=== PATIENT | female | born 1980 | race American Indian/Alaskan Native ===

== ENCOUNTER 2016-08-07 20:10 | Outpatient (CLI) | payer MEDICAID ==
[2016-08-07] MEDS ORDERED: LACTATED RINGERS 500 ML IV ONE (20:19)
[2016-08-07] MEDS ORDERED: LACTATED RINGERS 1,000 ML ONE (20:55)
[2016-08-07 21:00] LABS: Bacteria,Urine 1+ /HPF (Negative); Bilirubin,Urine NEG (Negative); Blood,Urine NEG (Negative); Ketones,Urine TR mg/dL (Negative); Leukocyte Esterase,Urine NEG (Negative); Mucus,Urine 3+ /HPF; Nitrite,Urine NEG (Negative)
[2016-08-07 21:10] LABS: Protein,Urine >500 mg/dL (Negative)
[2016-08-07] MEDS ORDERED: LACTATED RINGERS 1,000 ML IV ONE (21:10)
[2016-08-07 22:32] VITALS: BP 121/66
[2016-08-07 23:13] LABS: HIV-1 Antigen p24 Non React (Non React); HIVR-1/2 Ab Non React (Non React)
== END 2016-08-07 22:50 | disposition home or self-care (01) ==
LOC: TRG 20:10
PROVIDERS: ATTEND Obstetrics & Gynecology
DX: O42.913 Preterm premature rupture of membranes, unspecified as to length of time between rupture and onset of labor, third trimester (principal); Z3A.31 31 weeks gestation of pregnancy
CPT/HCPCS: 36415; 80074; 81001; 87806; J7120; 59025

== ENCOUNTER 2016-08-21 22:25 | Outpatient (CLI) | payer MEDICAID ==
[2016-08-21 23:11] VITALS: BP 118/66
[2016-08-21] MEDS ORDERED: LACTATED RINGERS 500 ML IV ONE (23:57)
[2016-08-22] MEDS ORDERED: LACTATED RINGERS 1,000 ML ONE (00:39)
[2016-08-22 00:57] LABS: Bilirubin,Urine NEG (Negative); Blood,Urine NEG (Negative); Ketones,Urine 20 mg/dL (Negative); Leukocyte Esterase,Urine NEG (Negative); Mucus,Urine 1+ /HPF; Nitrite,Urine NEG (Negative)
== END 2016-08-22 02:45 | disposition home or self-care (01) ==
LOC: TRG 22:25
PROVIDERS: ATTEND Obstetrics & Gynecology
DX: O26.893 Other specified pregnancy related conditions, third trimester (principal); Z3A.32 32 weeks gestation of pregnancy
CPT/HCPCS: 81001; 96360; J7120

== ENCOUNTER 2016-09-15 12:51 | Outpatient (CLI) | payer MEDICAID ==
[2016-09-15 13:14] VITALS: BP 122/73
[2016-09-15 14:13] LABS: Bilirubin,Urine NEG (Negative); Blood,Urine NEG (Negative); Ketones,Urine NEG (Negative); Leukocyte Esterase,Urine NEG (Negative); Mucus,Urine FEW /HPF; Nitrite,Urine NEG (Negative); Protein,Urine <15 mg/dL mg/dL (Negative); Urobilinogen,Urine < 2.0 mg/dL (<2.0)
--- NOTE | 2016-09-15 14:55 | Ultrasound Report ---
BIOPHYSICAL PROFILE: INDICATION: KATELYN. COMPARISON: None similar. TECHNIQUE: Transabdominal ultrasound with Doppler interrogation. 2 - breathing movements 2 - movements 2 - posture and tone 2 - Qualitative amniotic fluid volume 8 - TOTAL SCORE OF POSSIBLE 8 Heart Rate (bpm) 157
--- NOTE | 2016-09-15 14:57 | Ultrasound Report ---
OB LIMITED INDICATION: well being, KATELYN. COMPARISON: 02/21/2016 TECHNIQUE: Transabdominal grayscale ultrasound with Doppler interrogation. Gestation: [place] Position: Cephalic Amniotic Fluid: At upper limits of normal (Normal 7-24 cm) KATELYN = 24.3 cm Heart Rate: 157 BPM
== END 2016-09-15 14:29 | disposition home or self-care (01) ==
LOC: TRG 12:51
PROVIDERS: ATTEND Obstetrics & Gynecology
DX: O47.1 False labor at or after 37 completed weeks of gestation (principal); Z3A.37 37 weeks gestation of pregnancy
CPT/HCPCS: 59025; 76815; 76819; 81001

== ENCOUNTER 2016-09-24 00:58 | Outpatient (CLI) | payer MEDICAID ==
[2016-09-24 13:28] VITALS: BP 124/67
== END 2016-09-24 02:35 | disposition home or self-care (01) ==
LOC: TRG 00:58
PROVIDERS: ATTEND Obstetrics & Gynecology
DX: O62.0 Primary inadequate contractions (principal); Z3A.38 38 weeks gestation of pregnancy

== ENCOUNTER 2016-09-24 13:28 | Inpatient (IN) | payer MEDICAID ==
[2016-09-24] MEDS ORDERED: PEPCID IV ONE (13:41)
[2016-09-24] MEDS ORDERED: BICITRA PO ONE (13:41)
[2016-09-24] MEDS ORDERED: REGLAN IV ONE (13:41)
--- NOTE | 2016-09-24 13:57 | History and Physical Report ---
History of Present Illness Date of examination: 09/24/16 Date of admission: 09/24/16 13:28 Chief complaint: SROM History of present illness: Pt is a 35yo BF EDC 10/04/16; EGA 38 4/7 weeks presents to [facility] complaining of SROM clear fluid @ followed by irregular contractions. She receives care at [facility] since 12 weeks. She has 2 previous C Sections , and scheduled for a Repeat C Section 09/27/16. course has been unremarkable except for h/o Gestational DM. records are available and GBS is Positive. Past History Past Medical History: diabetes (GDM) Past Surgical History: section (x2), other (neck cyst resection) [employer] History: herpes Family/Genetic History: diabetes, heart disease, cancer Social history: no significant social history, - Obstetrical History Expected Date of Delivery: 10/04/16 Actual Gestation: 38 Week(s) 4 Day(s) : 4 Medications and Allergies Allergies Allergy/AdvReac Type Severity Reaction Status Date / Time No Known Allergies Allergy Unverified 12/01/14 03:09 Home Medications Medication Instructions Recorded Confirmed Last Taken Type HYDROcodone/APAP 5-325 [[place] 1 - 2 each PO Q6HR PRN #12 tablet 12/02/14 Unknown Rx 5/325] Amoxicillin [Trimox CAP] 500 mg PO Q8H #30 capsule 02/21/16 Unknown Rx Vit-Fe Fumar-FA [ 1 tab PO QDAY #30 tablet 02/21/16 Unknown Rx Vitamin] Ondansetron [Zofran Odt] 4 mg PO Q8HR PRN #10 tab.rapdis 02/22/16 Unknown Rx Active Meds: Active Medications Citric Acid/Sodium Citrate (Bicitra) 30 ml PO ONCE ONE Stop: 09/24/16 13:42 Famotidine (Pepcid) 20 mg IV ONCE ONE Stop: 09/24/16 13:42 Cefazolin Sodium (Ancef/Sterile Water 2 Gm/20 Ml) 2 gm in 20 mls @ 80 mls/hr IV PREOP NR PRN Reason: Protocol Lactated Ringer's (Lactated Ringers) 1,000 mls @ 2,250 mls/hr IV PREOP PATI Stop: 09/25/16 14:27 Oxytocin/Sodium Chloride (Pitocin/Ns 20 Unit/1000ml Drip) 20 units in 1,000 mls @ 0 mls/hr IV TITR PATI PRN Reason: As Directed Metoclopramide HCl (Reglan) 10 mg IV ONCE ONE Stop: 09/24/16 13:42 Review of Systems All systems: negative - Physical Exam Breasts: Positive: deferred Cardiovascular: Regular rate Lungs: Positive: Clear to auscultation Abdomen: Positive: normal appearance Genitourinary (Female): Positive: normal external genitalia Uterus: Positive: enlarged Extremities: Positive: normal - Obstetrical FHR: category 1 Uterine Contraction Monitor Mode: External Results All other labs normal. Assessment and Plan - Patient Problems (1) 38 weeks gestation of Onset Date: 09/24/16 Current Visit: Yes Status: Acute Plan to address problem: A: IUP @ 38 4/7 weeks in labor Previous C Section x 2 GBS Positive P: Admit to L&D for repeat C Section (2) Previous section complicating Onset Date: 09/24/16 Current Visit: Yes Status: Acute
[2016-09-24] MEDS ORDERED: PITOCin/NS 20 UNIT/1000ML DRIP 20 UNITS/1,000 ML BAG IV SCH ×2 (14:00→17:00)
[2016-09-24] MEDS ORDERED: ANCEF/STERILE WATER 2 GM/20 ML 2 GM/20 ML SYRINGE IV NR (14:00)
[2016-09-24] MEDS: LACTATED RINGERS 1,000 ML IV SCH ×2 (14:00→14:46)
[2016-09-24 14:18] LABS: Basophils % (Auto) 0.6 % (0.0-1.8); Eosinophils % (Auto) 0.4 % (0.0-4.3); Hematocrit 31.8 % (30.3-42.9); Hemoglobin 10.3 gm/dl (10.1-14.3); Mean Corpuscular HGB Conc 32 % (30-34); Mean Corpuscular Hemoglobin 26 pg (28-32); Mean Corpuscular Volume 81 fl (79-97); Platelet Count 248 K/mm3 (140-440); Red Blood Count 3.93 M/mm3 (3.65-5.03); Red Cell Distribution Width 17.8 % (13.2-15.2); White Blood Count 8.8 K/mm3 (4.5-11.0)
[2016-09-24] MEDS ORDERED: MORPHINE ONE (15:13)
[2016-09-24] MEDS ORDERED: NEO SYNEPHRINE ONE ×2 (15:15)
[2016-09-24] MEDS ORDERED: NACL 0.9% ONE ×2 (15:15)
[2016-09-24] MEDS ORDERED: WATER FOR IRRIG STERILE IR ONE (15:47)
[2016-09-24] MEDS ORDERED: NACL 0.9% IR ONE (15:48)
[2016-09-24] MEDS ORDERED: TORADOL ONE (15:49)
--- NOTE | 2016-09-24 16:35 | Operative Report ---
Operative Report Operative Report: Date of procedure: 09/24/2016 Pre-operative diagnosis: 1. Intrauterine at 38-4/7 weeks in labor 2. Previous section 2 3. Positive group B strep Post-operative diagnosis: Same with meconium fluid Procedure name(s):1. Repeat low transverse section 2. Lysis of pelvic adhesions Surgeon: Nathanael Osorio MD Seismograph Supervisor: None Anesthesia: Spinal anesthesia by Dr. Mateusz Odell EBL: 800 MLS Findings: A 3715 g male Apgars 8 at 1 minute 9 at 5 minutes. Nuchal cord 1. 1+ meconium fluid. Dense lower uterine segment adhesions. Normal uterus. Normal tubes and ovaries bilaterally. Procedure: After the patient was prepped and draped in usual sterile fashion, and after satisfactory level of epidural anesthesia was obtained, the skin knife was used to make a transverse skin incision through the previous skin scars. The incision was excised down to layer of the fascia, which was nicked in the midline and extended laterally using the Bovie cautery. The rectus muscles were dissected off the rectus fascia both superiorly and inferiorly. The rectus bellies in the midline, and the peritoneum was entered under direct visualization. There were large amounts of lower uterine segment adhesions each was taken down using sharp and blunt dissection. The peritoneal incision was extended superiorly and inferiorly. A bladder flap was created and the bladder blade was then placed. The uterus was scored in a curvilinear linear fashion, entered in the midline revealing meconium amniotic fluid. The infant's head was delivered onto the surgical field with the aid of a vacuum, ( 1 pull, no pop-offs), and the oropharynx and nasopharynx were bulb suctioned. The rest of the 's body was delivered, cord was doubly clamped and cut and the infant was handed to the waiting respiratory team. The placenta was manually removed from the uterus, and the uterus removed from its normal anatomical position. After gentle uterine lavage, the incision was inspected and found to be without extensions. It was then closed in 2 layers using 0 Vicryl suture in a running interlocking fashion, the second layer imbricating the first. After good hemostasis was achieved, copious amounts or irrigation was performed, and the gutters were suctioned free of blood and blood clots. The Tisseel sealant was sprayed across the uterine incision. The uterus was then returned to its normal anatomical position, and after excellent hemostasis assured, the peritoneum was reapproximated using 3-0 Vicryl suture in a running interlocking fashion, and then the rectus muscles were reapproximated using 3-0 Vicryl suture in a [id number] configuration. The fascia was then reapproximated using 0 Vicryl suture in running interlocking fashion. The subcutaneous layer was made hemostatic using Bovie cautery, the Tisseel sealant was sprayed across the fascial incision and the skin edges reapproximated using 4-0 Vicryl suture in a subcuticular fashion. Patient tolerated the procedure well was transported to recovery in stable condition.
[2016-09-24] MEDS ORDERED: MYLICON PO PRN (16:37)
[2016-09-24] MEDS ORDERED: MILK OF MAGNESIA PO PRN (16:37)
[2016-09-24] MEDS ORDERED: NORCO 5/325 PO PRN (16:37)
[2016-09-24] MEDS ORDERED: PERCOCET 5/325 PO PRN (16:37)
[2016-09-24] MEDS ORDERED: LANSINOH TP PRN (16:37)
[2016-09-24] MEDS ORDERED: SENOKOT PO PRN (16:37)
[2016-09-24] MEDS ORDERED: ZOFRAN IV PRN ×2 (16:37→16:44)
[2016-09-24] MEDS ORDERED: TYLENOL PO PRN (16:37)
[2016-09-24] MEDS ORDERED: TUCKS PAD TP PRN (16:37)
[2016-09-24] MEDS ORDERED: NARCAN 0.4 MG/1 ML IV PRN ×2 (16:37→16:44)
[2016-09-24] MEDS ORDERED: PHENERGAN PR PRN ×2 (16:37→16:44)
[2016-09-24] MEDS ORDERED: TORADOL IV PRN (16:37)
--- NOTE | 2016-09-24 16:43 | Anesthesia Consultation ---
Anesthesia Consult and Med Hx Date of service: 09/24/16 - Airway Anesthetic Teeth Evaluation: Good ROM Head & Neck: Adequate Mental/Hyoid Distance: Adequate Mallampati Class: Class II Intubation Access Assessment: Good - Pulmonary Exam CTA: Yes - Cardiac Exam Cardiac Exam: No Murmur - Pre-Operative Health Status ASA Pre-Surgery Classification: ASA2 Proposed Anesthetic Plan: Spinal - Pulmonary Hx Asthma: No COPD: No Hx Pneumonia: No - Cardiovascular System Hx Hypertension: No Hx Heart Attack/AMI: No Hx Pacemaker: No Hx Internal Defibrillator: No - Central Nervous System Hx Seizures: No Hx Psychiatric Problems: No - Endocrine Hx Renal Disease: No Hx End Stage Renal Disease: No Hx Liver Disease: No Hx Hypothyroidism: No Hx Hyperthyroidism: No - Hematic Hx Anemia: Yes (taking iron) Hx Sickle Cell Disease: No - Other Systems Hx Alcohol Use: No
--- NOTE | 2016-09-24 16:43 | Anesthesia Day of Surgery ---
Anesthesia Day of Surgery - Day of Surgery Patient Examined: Yes Patient H&P Reviewed: Yes Patient is NPO: Yes
[2016-09-24] MEDS ORDERED: DILAUDID IV PRN (16:44)
[2016-09-24] MEDS ORDERED: PHENERGAN PO PRN (16:44)
--- NOTE | 2016-09-24 16:44 | Post Anesthesia Evaluation ---
- Post Anesthesia Evaluation Patient Participated: Yes Airway Patent: Yes Stable Respiratory Function: Yes Nausea/Vomiting: No Temp > 96.8F: Yes Pain Manageable: Yes Adequeate Hydration: Yes Anesthesia Complications: No
[2016-09-24] MEDS ORDERED: SODIUM CHLORIDE FLUSH SYRINGE 10 ML IV NR ×2 (17:00)
[2016-09-24] MEDS ORDERED: ANCEF/NS 1 GM/50 ML 1 GM/50 ML BAG IV SCH (17:00)
[2016-09-24] MEDS ORDERED: fentaNYL-BUPIV 2 MCG/ML-0.125% 200 MCG/100 ML BAG EPIDURAL SCH (17:00)
[2016-09-25] MEDS: D5LR 1,000 ML IV SCH ×2 (01:19→05:48)
[2016-09-25 06:19] LABS: Hematocrit 30.5 % (30.3-42.9); Hemoglobin 9.7 gm/dl (10.1-14.3)
[2016-09-25] MEDS: FEOSOL PO SCH (10:00)
[2016-09-25] MEDS: PRENATAL VITAMIN PO SCH (10:00)
[2016-09-25] MEDS: MOTRIN PO PRN ×3 (11:52→22:58)
--- NOTE | 2016-09-25 12:49 | Progress Note ---
Assessment and Plan A: POD #1 Asymptomatic Anemia P: Follow Routine Postop Orders Encourage increased ambulation Subjective - Subjective Date of service: 09/25/16 Patient reports: appetite normal, voiding normally, pain well controlled, ambulating normally [place]: doing well, bottle feeding (and ) Objective - Vital Signs Latest vital signs: Vital Signs Temp Pulse Pulse Resp BP BP Pulse Ox 09/25/16 08:00 98.6 F 81 20 99/52 09/25/16 04:40 98.9 F 88 20 109/64 09/25/16 00:40 98.3 F 87 20 102/50 09/24/16 20:00 98.5 F 80 100/52 09/24/16 17:45 97.7 F 75 20 108/56 09/24/16 17:27 97.9 F 73 18 97/61 98 09/24/16 17:14 75 18 108/59 09/24/16 17:00 67 18 107/58 98 09/24/16 16:45 68 20 103/57 97 09/24/16 16:40 72 20 104/57 97 09/24/16 16:35 66 18 99/50 97 09/24/16 16:30 98.2 F 74 18 89/53 98 09/24/16 14:05 98.5 F 103 H 18 115/76 Intake and Output 09/24/16 09/25/16 09/25/16 22:59 06:59 14:59 Intake Total 1645 1495 120 Output Total 1200 400 Balance 445 1095 120 Intake: IV 1645 1375 ANCEF/STERILE WATER 2 GM/ 20 20 ML 2 gm In 20 ml @ 80 mls/hr IV PREOP NR Rx#: [id number] D5lr 1,000 ml @ 125 mls/ 1250 hr IV DIRECT PATI Rx#: [id number] Left Hand 125 PITOCin/NS 20 UNIT/1000ML 250 125 DRIP 20 units In 1,000 ml @ 250 mls/hr IV DIRECT PATI Rx#:[id number] PITOCin/NS 20 UNIT/1000ML 750 DRIP 20 units In 1,000 ml @ As Directed IV TITR PATI Rx#:[id number] Oral 120 120 Output: Urine 900 400 Indwelling Catheter 600 400 Emesis 300 Other: Total, Intake Amount 120 120 Total, Output Amount 300 250 Estimated Blood Loss 800 - Exam Breasts: Present: normal Cardiovascular: Present: Regular rate Lungs: Present: Clear to auscultation Abdomen: Present: normal appearance Uterus: Present: normal, firm, fundal height below umbilicus Extremities: Present: normal Incision: Present: normal, dry, dressed - Labs Labs: Abnormal lab results 09/24/16 09/25/16 Range/Units 13:40 05:51 Hgb 9.7 L (10.1-14.3) gm/dl MCH 26 L (28-32) pg RDW 17.8 H (13.2-15.2) % [place] % (Auto) 7.6 H (0.0-7.3) % Seg Neutrophils % 75.8 H (40.0-70.0) %
[2016-09-25] MEDS ORDERED: BOOSTRIX IM ONE (16:39)
[2016-09-25] MEDS ORDERED: M-M-R II VACCINE SUB-Q ONE (16:39)
[2016-09-26] MEDS: FEOSOL PO SCH (09:39)
[2016-09-26] MEDS: PRENATAL VITAMIN PO SCH (09:39)
[2016-09-26] MEDS: MOTRIN PO PRN ×2 (09:39→19:47)
--- NOTE | 2016-09-26 10:07 | Progress Note ---
Assessment and Plan A: POD # 2, stable P; Plan discharge home in am Subjective - Subjective Date of service: 09/26/16 Principal diagnosis: S/P c section 09/24 Patient reports: appetite normal [place]: doing well Objective - Vital Signs Latest vital signs: Vital Signs Temp Pulse Resp BP 09/26/16 07:25 98.5 F 68 18 95/48 09/26/16 00:20 98.9 F 72 20 90/56 09/25/16 22:58 18 09/25/16 16:05 98.2 F 76 20 96/52 Intake and Output 09/25/16 09/26/16 09/26/16 22:59 06:59 14:59 Intake Total 240 360 Output Total 900 Balance -660 360 Intake: Oral 240 Intake, Free Water 360 Output: Urine 900 Void 900 Other: Total, Intake Amount 120 Total, Output Amount 900 # Voids Void 1 2 # Bowel Movements 2 - Exam Breasts: Present: deferred Cardiovascular: Present: Regular rate Lungs: Present: Clear to auscultation Abdomen: Present: soft Vulva: both: normal Uterus: Present: fundal height below umbilicus Deep Tendon Reflex Grade: Normal +2
--- NOTE | 2016-09-26 10:09 | Discharge Summary ---
Providers - Providers Date of Admission: 09/24/16 13:28 Date of discharge: 09/27/16 Attending physician: ZACK JOYA MD Primary care physician: ZACK JOYA MD Hospitalization Reason for admission: section Delivery: Procedure: section Discharge diagnosis: IUP at term delivered [place] baby: male Hospital course: uneventful Condition at discharge: Good Disposition: DISCHARGED TO HOME OR SELFCARE Plan - Discharge Medications Prescriptions: Ferrous Sulfate [Feosol 325 MG tab] 325 mg PO BID #60 tablet HYDROcodone/APAP 5-325 [[place] 5/325] 1 each PO Q6HR PRN #30 tablet PRN Reason: Pain Ibuprofen [Motrin] 800 mg PO Q8HR PRN #30 tablet PRN Reason: Moder Pain Unrelieved By [place] Vit W-Ca,Fe,FA(<1 mg) [ Vitamins] 1 each PO DAILY #30 tablet - Provider Discharge Summary Activity: routine, no sex for 6 weeks, no heavy lifting 4 weeks, no strenuous exercise Diet: routine Additional instructions: [] Smoking cessation referral if applicable(refer to patient education folder for contact #) [] Refer to [facility] Booklet Call your doctor immediately for: * Fever > 100.5 * Heavy vaginal bleeding ( >1 pad per hour) * Severe persistent headache * Shortness of breath * Reddened, hot, painful area to leg or breast * Drainage or odor from incision. * Keep incision clean and dry at all times and follow doctor's instructions regarding bathing/showering - Follow up plan Follow up: [facility] [Provider Group] - 14 Days
[2016-09-27] MEDS: FEOSOL PO SCH (10:18)
[2016-09-27] MEDS: PRENATAL VITAMIN PO SCH (10:18)
[2016-09-27] MEDS: MOTRIN PO PRN (12:50)
[2016-09-27 18:07] VITALS: BP 118/64
== END 2016-09-27 16:40 | disposition home or self-care (01) | DRG 765 ==
LOC: APU 13:28 → OB 17:46
PROVIDERS: ADMIT Obstetrics & Gynecology; ATTEND Obstetrics & Gynecology
PROC: 10D00Z1 Extraction of Products of Conception, Low, Open Approach (ICD-10-PCS; principal; 2016-09-24)
PROC: 0UN90ZZ Release Uterus, Open Approach (ICD-10-PCS; 2016-09-24)
DX: O42.02 Full-term premature rupture of membranes, onset of labor within 24 hours of rupture (principal); O98.513 Other viral diseases complicating pregnancy, third trimester; B00.9 Herpesviral infection, unspecified; O34.211 Maternal care for low transverse scar from previous cesarean delivery; O99.824 Streptococcus B carrier state complicating childbirth; O99.02 Anemia complicating childbirth; D64.9 Anemia, unspecified; Z37.0 Single live birth; Z3A.38 38 weeks gestation of pregnancy; O77.0 Labor and delivery complicated by meconium in amniotic fluid; O69.81X0 Labor and delivery complicated by cord around neck, without compression, not applicable or unspecified; O99.89 Other specified diseases and conditions complicating pregnancy, childbirth and the puerperium; N73.6 Female pelvic peritoneal adhesions (postinfective)
CPT/HCPCS: 36415; 59025; 85014; 85018; 85025; 86850; 86900; 86901; 88307; 96360; 99211; A6250; C9250; G0463; J0690; J1885; J2270; J2370; J2405; J2590; J2765; J7120; J7121

== ENCOUNTER 2017-01-18 02:34 | Emergency (ER) | payer MEDICAID ==
[2017-01-18 02:44] VITALS: BP 137/93
[2017-01-18 03:11] LABS: Basophils % (Auto) 0.8 % (0.0-1.8); Eosinophils % (Auto) 2.3 % (0.0-4.3); Hematocrit 36.2 % (30.3-42.9); Mean Corpuscular HGB Conc 33 % (30-34); Mean Corpuscular Hemoglobin 28 pg (28-32); Mean Corpuscular Volume 85 fl (79-97); Platelet Count 333 K/mm3 (140-440); Red Blood Count 4.28 M/mm3 (3.65-5.03); Red Cell Distribution Width 15.3 % (13.2-15.2); White Blood Count 6.8 K/mm3 (4.5-11.0)
[2017-01-18 03:21] LABS: INR 0.93 (0.87-1.13)
[2017-01-18 03:37] LABS: Alanine Aminotransferase 20 units/L (7-56); Albumin 3.8 g/dL (3.9-5); Albumin/Globulin Ratio 1.1 %; Alkaline Phosphatase 66 units/L (35-129); Anion Gap 19 mmol/L; BUN/Creatinine Ratio 18.57; Bilirubin,Total < 0.20 mg/dL (0.1-1.2); Blood Urea Nitrogen 13 mg/dL (7-17); Calcium 8.7 mg/dL (8.4-10.2); Carbon Dioxide 22 mmol/L (22-30); Chloride 100.8 mmol/L (98-107); Glucose 91 mg/dL (65-100); Lipase 37 units/L (13-60); Potassium 3.6 mmol/L (3.6-5.0); Sodium 138 mmol/L (137-145); Total Protein 7.3 g/dL (6.3-8.2)
[2017-01-18] MEDS ORDERED: TORADOL IM ONE (03:40)
--- NOTE | 2017-01-18 03:41 | Emergency Department Report ---
ED General Adult HPI - General Chief complaint: Abdominal Pain Stated complaint: PAIN IN C SECTION AREA Time Seen by Provider: 01/18/17 03:06 Source: patient, RN notes reviewed, old records reviewed Mode of arrival: Ambulatory Limitations: No Limitations - History of Present Illness Initial comments: This is a 36-year-old female. She is previously unknown to me. 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 The patient presents to the ER with a primary complaint of suprapubic pain over her site. She reports that she's been having pain over the site since her , but recently the pain got worse. The pain is sharp, and increases when she walks and does heavy lifting. It decreases with rest. There is no nausea, vomiting, diarrhea, fevers, chills, irritative or obstructive urinary symptoms. There is no left lower quadrant pain. There is no right lower quadrant pain. -: Gradual, month(s) Location: abdomen Quality: burning, aching Consistency: intermittent Improves with: rest Worsens with: movement Associated Symptoms: denies: confusion, chest pain, cough, diaphoresis, fever/ chills, headaches, loss of appetite, malaise, nausea/vomiting, rash, shortness of breath, syncope, weakness - Related Data Previous Rx's Medication Instructions Recorded Last Taken Type Vit-Fe Fumar-FA [ 1 tab PO QDAY #30 tablet 02/21/16 09/22/16 21 :00 Rx Vitamin] Ferrous Sulfate [Feosol 325 MG tab] 325 mg PO BID #60 tablet 09/24/16 Unknown Rx HYDROcodone/APAP 5-325 [[place] 1 each PO Q6HR PRN #30 tablet 09/24/16 Unknown Rx 5/325] Ibuprofen [Motrin] 800 mg PO Q8HR PRN #30 tablet 09/24/16 Unknown Rx Vit W-Ca,Fe,FA(<1 mg) 1 each PO DAILY #30 tablet 09/24/16 Unknown Rx [ Vitamins] Ibuprofen [Motrin] 600 mg PO Q8H PRN #30 tablet 01/18/17 Unknown Rx Allergies Allergy/AdvReac Type Severity Reaction Status Date / Time No Known Allergies Allergy Unverified 12/01/14 03:09 ED Review of Systems ROS: Stated complaint: PAIN IN C SECTION AREA Other details as noted in HPI Constitutional: denies: fever, malaise Eyes: denies: vision change ENT: denies: epistaxis Respiratory: denies: cough Cardiovascular: denies: chest pain Gastrointestinal: abdominal pain Genitourinary: denies: urgency, dysuria Musculoskeletal: denies: back pain Skin: denies: lesions Neurological: denies: weakness ED Past Medical Hx - Past Medical History Previous Medical History?: No Hx Hypertension: No Hx CVA: No Hx Heart Attack/AMI: No Hx Congestive Heart Failure: No Hx Diabetes: No Hx Deep Vein Thrombosis: No Hx Pulmonary Embolism: No Hx GERD: No Hx Liver Disease: No Hx Renal Disease: No Hx Sickle Cell Disease: No Hx Arthritis: No Hx Headaches / Migraines: No Hx Seizures: No Hx Kidney Stones: No Hx Psychiatric Treatment: No Hx Asthma: No Hx COPD: No Hx Tuberculosis: No Hx Dementia: No Hx HIV: No - Surgical History Past Surgical History?: Yes Hx Coronary Stent: No Hx Open Heart Surgery: No Hx Pacemaker: No Hx Internal Defibrillator: No Hx Cholecystectomy: No Hx Appendectomy: No Hx Breast Surgery: No Additional Surgical History: x2, neck surgery - Social History Smoking Status: Never Smoker Substance Use Type: None - Medications Home Medications: Home Medications Medication Instructions Recorded Confirmed Last Taken Type Vit-Fe Fumar-FA [ 1 tab PO QDAY #30 tablet 02/21/16 09/24/16 21:00 Rx Vitamin] Ferrous Sulfate [Feosol 325 MG tab] 325 mg PO BID #60 tablet 09/24/16 Unknown Rx HYDROcodone/APAP 5-325 [[place] 1 each PO Q6HR PRN #30 tablet 09/24/16 Unknown Rx 5/325] Ibuprofen [Motrin] 800 mg PO Q8HR PRN #30 tablet 09/24/16 Unknown Rx Vit W-Ca,Fe,FA(<1 mg) 1 each PO DAILY #30 tablet 09/24/16 Unknown Rx [ Vitamins] Ibuprofen [Motrin] 600 mg PO Q8H PRN #30 tablet 01/18/17 Unknown Rx ED Physical Exam - General Limitations: No Limitations General appearance: alert, in no apparent distress - Head Head exam: Present: atraumatic, normocephalic - Eye Eye exam: Present: normal appearance, EOMI. Absent: nystagmus - ENT ENT exam: Present: normal exam, normal orophraynx, mucous membranes moist, normal external ear exam - Neck Neck exam: Present: normal inspection, full ROM. Absent: tenderness, meningismus - Respiratory Respiratory exam: Present: normal lung sounds bilaterally. Absent: respiratory distress, wheezes, rales, rhonchi, stridor, chest wall tenderness, accessory muscle use, decreased breath sounds, prolonged expiratory - Cardiovascular Cardiovascular Exam: Present: regular rate, normal rhythm, normal heart sounds. Absent: bradycardia, tachycardia, irregular rhythm, systolic murmur, diastolic murmur, rubs, gallop - GI/Abdominal GI/Abdominal exam: Present: soft, normal bowel sounds. Absent: distended, tenderness, guarding, rebound, rigid, pulsatile mass - External exam: Present: normal external exam, other (suprapubic section scar is tender. There is no redness, pus or streaking or crepitus. There is no wound dehiscence.) Speculum exam: Present: normal speculum exam Bi-manual exam: Present: normal bi-manual exam, other (escorted by LUIS Mcclure) . Absent: cervical motion tendernes, adnexal tenderness, adnexal mass, uterine enlargement, uterine tenderness - Extremities Exam Extremities exam: Present: normal inspection, full ROM, normal capillary refill. Absent: tenderness, pedal edema, joint swelling, calf tenderness - Back Exam Back exam: Present: normal inspection, full ROM. Absent: tenderness, CVA tenderness (R), CVA tenderness (L), muscle spasm, paraspinal tenderness, vertebral tenderness - Neurological Exam Neurological exam: Present: alert, oriented X3, normal gait, other (Extraocular movements intact. Tongue midline. No facial droop. Facial sensation intact to light touch in the V1, V2, V3 distribution bilaterally. 5 and 5 strength in 4 extremities.. Sensation is intact to light touch in 4 extremities.). Absent : motor sensory deficit - Psychiatric Psychiatric exam: Present: normal affect, normal mood - Skin Skin exam: Present: warm, dry, intact, normal color. Absent: rash ED Course Vital Signs 01/18/17 02:40 Temperature 98.3 F Pulse Rate 74 Respiratory 18 Rate Blood Pressure 137/93 O2 Sat by Pulse 98 Oximetry ED Medical Decision Making - Lab Data Result diagrams: 01/18/17 02:59 08/09/17 02:59 Vital Signs 01/18/17 02:40 Temperature 98.3 F Pulse Rate 74 Respiratory 18 Rate Blood Pressure 137/93 O2 Sat by Pulse 98 Oximetry Lab Results 01/18/17 01/18/17 01/18/17 Range/Units 02:59 02:59 02:59 WBC 6.8 (4.5-11.0) K/mm3 RBC 4.28 (3.65-5.03) M/mm3 Hgb 12.0 (10.1-14.3) gm/dl Hct 36.2 (30.3-42.9) % MCV 85 (79-97) fl MCH 28 (28-32) pg MCHC 33 (30-34) % RDW 15.3 H (13.2-15.2) % Plt Count 333 (140-440) K/mm3 Lymph % (Auto) 37.1 H (13.4-35.0) % [place] % (Auto) 5.5 (0.0-7.3) % Eos % (Auto) 2.3 (0.0-4.3) % Baso % (Auto) 0.8 (0.0-1.8) % Lymph # 2.5 (1.2-5.4) K/mm3 [place] # 0.4 (0.0-0.8) K/mm3 Eos # 0.2 (0.0-0.4) K/mm3 Baso # 0.1 (0.0-0.1) K/mm3 Seg Neutrophils % 54.3 (40.0-70.0) % Seg Neutrophils # 3.7 (1.8-7.7) K/mm3 PT 12.9 (12.2-14.9) Sec. INR 0.93 (0.87-1.13) Sodium 138 (137-145) mmol/L Potassium 3.6 (3.6-5.0) mmol/L Chloride 100.8 (98-107) mmol/L Carbon Dioxide 22 (22-30) mmol/L Anion Gap 19 mmol/L BUN 13 (7-17) mg/dL Creatinine 0.7 (0.7-1.2) mg/dL Estimated GFR > 60 ml/min BUN/Creatinine Ratio 18.57 % Glucose 91 (65-100) mg/dL Calcium 8.7 (8.4-10.2) mg/dL Total Bilirubin < 0.20 (0.1-1.2) mg/dL AST 23 (5-40) units/L ALT 20 (7-56) units/L Alkaline Phosphatase 66 (35-129) units/L Total Protein 7.3 (6.3-8.2) g/dL Albumin 3.8 L (3.9-5) g/dL Albumin/Globulin Ratio 1.1 % Lipase 37 (13-60) units/L HCG, Quant (0-4) mIU/mL Urine Color (Yellow) Urine Turbidity (Clear) Urine pH (5.0-7.0) Ur Specific [place] (1.003-1.030) Urine Protein (Negative) mg/dL Urine Glucose (UA) (Negative) mg/dL Urine Ketones (Negative) mg/dL Urine Blood (Negative) Urine Nitrite (Negative) Urine Bilirubin (Negative) Urine Urobilinogen (<2.0) mg/dL Ur Leukocyte Esterase (Negative) Urine WBC (Auto) (0.0-6.0) /HPF Urine RBC (Auto) (0.0-6.0) /HPF U Epithel Cells (Auto) (0-13.0) /HPF Urine Mucus /HPF Urine HCG, Qual (Negative) 01/18/17 01/18/17 Range/Units 02:59 03:23 WBC (4.5-11.0) K/mm3 RBC (3.65-5.03) M/mm3 Hgb (10.1-14.3) gm/dl Hct (30.3-42.9) % MCV (79-97) fl MCH (28-32) pg MCHC (30-34) % RDW (13.2-15.2) % Plt Count (140-440) K/mm3 Lymph % (Auto) (13.4-35.0) % [place] % (Auto) (0.0-7.3) % Eos % (Auto) (0.0-4.3) % Baso % (Auto) (0.0-1.8) % Lymph # (1.2-5.4) K/mm3 [place] # (0.0-0.8) K/mm3 Eos # (0.0-0.4) K/mm3 Baso # (0.0-0.1) K/mm3 Seg Neutrophils % (40.0-70.0) % Seg Neutrophils # (1.8-7.7) K/mm3 PT (12.2-14.9) Sec. INR (0.87-1.13) Sodium (137-145) mmol/L Potassium (3.6-5.0) mmol/L Chloride (98-107) mmol/L Carbon Dioxide (22-30) mmol/L Anion Gap mmol/L BUN (7-17) mg/dL Creatinine (0.7-1.2) mg/dL Estimated GFR ml/min BUN/Creatinine Ratio % Glucose (65-100) mg/dL Calcium (8.4-10.2) mg/dL Total Bilirubin (0.1-1.2) mg/dL AST (5-40) units/L ALT (7-56) units/L Alkaline Phosphatase (35-129) units/L Total Protein (6.3-8.2) g/dL Albumin (3.9-5) g/dL Albumin/Globulin Ratio % Lipase (13-60) units/L HCG, Quant < 2 (0-4) mIU/mL Urine Color Yellow (Yellow) Urine Turbidity Clear (Clear) Urine pH 6.0 (5.0-7.0) Ur Specific [place] 1.025 (1.003-1.030) Urine Protein <15 mg/dl (Negative) mg/dL Urine Glucose (UA) Neg (Negative) mg/dL Urine Ketones Neg (Negative) mg/dL Urine Blood Neg (Negative) Urine Nitrite Neg (Negative) Urine Bilirubin Neg (Negative) Urine Urobilinogen 2.0 (<2.0) mg/dL Ur Leukocyte Esterase Tr (Negative) Urine WBC (Auto) 3.0 (0.0-6.0) /HPF Urine RBC (Auto) 1.0 (0.0-6.0) /HPF U Epithel Cells (Auto) 15.0 H (0-13.0) /HPF Urine Mucus Few /HPF Urine HCG, Qual Negative (Negative) - Medical Decision Making Differential diagnosis: Urinary tract infection, , section scar pain Assessment and plan: 36-year-old female with acute on chronic pain over her section site. She is minimally tender, has unremarkable laboratory studies, urinalysis is not consistent with UTI, and is found to not be . There may be a component of chronic muscle scarring secondary to her section. She is able to walk without difficulty, and her external physical exam is not consistent with cellulitis. She is treated with pain medication, and she is instructed to follow-up with her outpatient telephone order supervisor. Critical care attestation.: If time is entered above; I have spent that time in minutes in the direct care of this critically ill patient, excluding procedure time. ED Disposition Clinical Impression: Suprapubic pain Disposition: - TO HOME OR SELFCARE Is pt being admited?: No Does the pt Need Aspirin: No Condition: Stable Instructions: Abdominal Pain (ED) Additional Instructions: Rest and avoid heavy lifting. Avoid strenuous physical activity. Take the pain medication as directed. Follow up with her telephone order supervisor within the next 2 weeks. Consider progressive weight loss strategies, diet and lifestyle modifications. Weight loss may assist with pain and discomfort. Return to the ER right away with new pain, worsened pain, migration of pain, fevers, chills, confusion, intractable nausea or vomiting, inability to tolerate liquid feeds. Cultures were sent today, results available next 3-5 days. Have your telephone order supervisor contact the medical records department to obtain culture results. Referrals: [facility] [Provider Group] - 3-5 Days
[2017-01-18 03:44] LABS: Bilirubin,Urine NEG (Negative); Blood,Urine NEG (Negative); Ketones,Urine NEG (Negative); Leukocyte Esterase,Urine TR (Negative); Mucus,Urine FEW /HPF; Nitrite,Urine NEG (Negative); Protein,Urine <15 mg/dL mg/dL (Negative)
== END 2017-01-18 04:16 | disposition home or self-care (01) ==
LOC: ED 02:34
DX: R10.30 Lower abdominal pain, unspecified (principal)
CPT/HCPCS: 36415; 80053; 81001; 81025; 83690; 84702; 85025; 85610; 87210; 87591; 96372; 99284; J1885

== ENCOUNTER 2017-02-01 09:20 | Emergency (ER) | payer MEDICAID ==
[2017-02-01 10:43] LABS: Basophils % (Auto) 1.3 % (0.0-1.8); Eosinophils % (Auto) 3.3 % (0.0-4.3); Hematocrit 39.6 % (30.3-42.9); Hemoglobin 12.6 gm/dl (10.1-14.3); Mean Corpuscular HGB Conc 32 % (30-34); Mean Corpuscular Hemoglobin 27 pg (28-32); Mean Corpuscular Volume 86 fl (79-97); Platelet Count 319 K/mm3 (140-440); Red Blood Count 4.63 M/mm3 (3.65-5.03); Red Cell Distribution Width 14.6 % (13.2-15.2); White Blood Count 5.5 K/mm3 (4.5-11.0)
[2017-02-01 10:55] LABS: Anion Gap 17 mmol/L; BUN/Creatinine Ratio 15.71; Blood Urea Nitrogen 11 mg/dL (7-17); Calcium 8.9 mg/dL (8.4-10.2); Carbon Dioxide 25 mmol/L (22-30); Chloride 99.6 mmol/L (98-107); Glucose 93 mg/dL (65-100); Sodium 138 mmol/L (137-145)
--- NOTE | 2017-02-01 17:30 | Emergency Department Report ---
ED Chest Pain HPI - General Chief Complaint: Chest Pain Stated Complaint: CHEST PAIN/BACK PAIN Time Seen by Provider: 02/01/17 17:11 Source: patient Mode of arrival: Ambulatory Limitations: No Limitations - History of Present Illness MD Complaint: chest pain -: Gradual Onset: during rest, during exertion Pain Location: substernal, right chest Pain Radiation: none Severity: mild Severity scale (0 -10): 7 Quality: tightness, aching, sharp, dull, ripping Consistency: intermittent Improves With: nothing Worsens With: nothing re: denies: nausea, vomting, diaphoresis, dyspnea, sense of impending doom Other Symptoms: denies: cough, fever, syncope, rash, acid taste in mouth, leg swelling, palpitations Treatments Prior to Arrival: none - Related Data On Oral Contraceptives: No Previous Rx's Medication Instructions Recorded Last Taken Type Vit-Fe Fumar-FA [ 1 tab PO QDAY #30 tablet 02/21/16 09/22/16 21 :00 Rx Vitamin] Ferrous Sulfate [Feosol 325 MG tab] 325 mg PO BID #60 tablet 09/24/16 Unknown Rx HYDROcodone/APAP 5-325 [[place] 1 each PO Q6HR PRN #30 tablet 09/24/16 Unknown Rx 5/325] Ibuprofen [Motrin] 800 mg PO Q8HR PRN #30 tablet 09/24/16 Unknown Rx Vit W-Ca,Fe,FA(<1 mg) 1 each PO DAILY #30 tablet 09/24/16 Unknown Rx [ Vitamins] Ibuprofen [Motrin] 600 mg PO Q8H PRN #30 tablet 01/18/17 Unknown Rx Allergies Allergy/AdvReac Type Severity Reaction Status Date / Time No Known Allergies Allergy Unverified 12/01/14 03:09 Heart Score - HEART Score History: Slightly suspicious EKG: Normal Age: < 45 Risk factors: No known risk factors Troponin: < normal limit HEART Score: 0 - Critical Actions Critical Actions: 0-3 pts:0.9-1.7%risk of adverse cardiac event.Candidate for discharge ED Review of Systems ROS: Stated complaint: CHEST PAIN/BACK PAIN Other details as noted in HPI Comment: All other systems reviewed and negative ED Past Medical Hx - Past Medical History Hx Hypertension: No Hx CVA: No Hx Heart Attack/AMI: No Hx Congestive Heart Failure: No Hx Diabetes: No Hx Deep Vein Thrombosis: No Hx Pulmonary Embolism: No Hx GERD: No Hx Liver Disease: No Hx Renal Disease: No Hx Sickle Cell Disease: No Hx Arthritis: No Hx Headaches / Migraines: No Hx Seizures: No Hx Kidney Stones: No Hx Psychiatric Treatment: No Hx Asthma: No Hx COPD: No Hx Tuberculosis: No Hx Dementia: No Hx HIV: No - Surgical History Hx Coronary Stent: No Hx Open Heart Surgery: No Hx Pacemaker: No Hx Internal Defibrillator: No Hx Cholecystectomy: No Hx Appendectomy: No Hx Breast Surgery: No Additional Surgical History: x2, neck surgery - Social History Smoking Status: Never Smoker Substance Use Type: None - Medications Home Medications: Home Medications Medication Instructions Recorded Confirmed Last Taken Type Vit-Fe Fumar-FA [ 1 tab PO QDAY #30 tablet 02/21/16 09/24/16 21:00 Rx Vitamin] Ferrous Sulfate [Feosol 325 MG tab] 325 mg PO BID #60 tablet 09/24/16 Unknown Rx HYDROcodone/APAP 5-325 [[place] 1 each PO Q6HR PRN #30 tablet 09/24/16 Unknown Rx 5/325] Ibuprofen [Motrin] 800 mg PO Q8HR PRN #30 tablet 09/24/16 Unknown Rx Vit W-Ca,Fe,FA(<1 mg) 1 each PO DAILY #30 tablet 09/24/16 Unknown Rx [ Vitamins] Ibuprofen [Motrin] 600 mg PO Q8H PRN #30 tablet 01/18/17 Unknown Rx ED Physical Exam - General Limitations: No Limitations General appearance: alert, in no apparent distress - Head Head exam: Present: atraumatic, normocephalic - Eye Eye exam: Present: normal appearance, PERRL, EOMI - ENT ENT exam: Present: normal exam, normal orophraynx, mucous membranes moist - Neck Neck exam: Present: normal inspection - Respiratory Respiratory exam: Present: normal lung sounds bilaterally. Absent: respiratory distress - Cardiovascular Cardiovascular Exam: Present: regular rate, normal rhythm. Absent: systolic murmur, diastolic murmur, rubs, gallop - GI/Abdominal GI/Abdominal exam: Present: soft, normal bowel sounds - Extremities Exam Extremities exam: Present: normal inspection - Back Exam Back exam: Present: normal inspection - Neurological Exam Neurological exam: Present: alert, oriented X3 - Psychiatric Psychiatric exam: Present: normal affect, normal mood - Skin Skin exam: Present: warm, dry, intact, normal color. Absent: rash ED Course Vital Signs 02/01/17 02/01/17 02/01/17 09:30 15:37 16:07 Temperature 97.6 F 97.9 F Pulse Rate 86 58 L 90 Respiratory 18 19 Rate Blood Pressure 131/76 Blood Pressure 119/83 [Right] O2 Sat by Pulse 99 100 Oximetry 02/01/17 02/01/17 02/01/17 16:15 16:30 16:45 Temperature Pulse Rate 85 91 H 98 H Respiratory 17 12 20 Rate Blood Pressure 119/67 112/76 112/76 Blood Pressure [Right] O2 Sat by Pulse 99 99 98 Oximetry 02/01/17 02/01/17 02/01/17 17:00 17:15 17:30 Temperature Pulse Rate 92 H 86 86 Respiratory 17 15 12 Rate Blood Pressure 119/83 119/83 123/70 Blood Pressure [Right] O2 Sat by Pulse 98 98 98 Oximetry 02/01/17 02/01/17 02/01/17 17:45 18:14 18:15 Temperature Pulse Rate 87 71 Respiratory 13 18 Rate Blood Pressure 123/70 123/70 123/70 Blood Pressure [Right] O2 Sat by Pulse 98 100 100 Oximetry 02/01/17 02/01/17 02/01/17 18:30 18:45 19:00 Temperature Pulse Rate 64 64 63 Respiratory 16 14 18 Rate Blood Pressure 103/55 103/55 111/52 Blood Pressure [Right] O2 Sat by Pulse 97 100 99 Oximetry SARA score - Sara Score Age > 65: (0) No Aspirin use within the Past 7 Days: (0) No 3 or more CAD Risk Factors: (0) No 2 or more Angina events in past 24 hrs: (0) No Known CAD with more than 50% Stenosis: (0) No Elevated Cardiac Markers: (0) No ST Deviation Greater than 0.5mm: (0) No SARA Score: 0 ED Medical Decision Making - Lab Data Result diagrams: 02/01/17 10:18 02/01/17 10:18 Critical care attestation.: If time is entered above; I have spent that time in minutes in the direct care of this critically ill patient, excluding procedure time. ED Disposition Clinical Impression: Chest pain, Musculoskeletal chest pain Disposition: DC-01 TO HOME OR SELFCARE Is pt being admited?: No Does the pt Need Aspirin: No Condition: Good Instructions: Chest Pain (ED) Referrals: PRIMARY CARE, [Primary Care Provider] - 3-5 Days Time of Disposition: 19:35
[2017-02-01] MEDS ORDERED: NACL ONE (17:49)
--- NOTE | 2017-02-01 18:40 | Cat Scan Report ---
FINAL REPORT EXAM: CT ANGIO CHEST HISTORY: PE protocol TECHNIQUE: CT chest CT angiogram with reconstructions PRIORS: None. FINDINGS: There is no evidence of filling defect within the central pulmonary vasculature to suggest the presence of acute pulmonary embolus. No evidence of mediastinal pathologic lymph node enlargement Heart and great vessels are unremarkable. The aorta is normal in caliber. No focal pulmonary infiltrate identified. No pleural fluid collection seen. No acute pulmonary abnormality noted. Visualized portion of the upper abdomen demonstrates no acute change. IMPRESSION: Negative. No CT evidence of acute pulmonary embolus
[2017-02-01 19:07] VITALS: BP 111/52
== END 2017-02-01 19:51 | disposition home or self-care (01) ==
LOC: ED 09:20
DX: R07.89 Other chest pain (principal)
CPT/HCPCS: 36415; 71275; 80048; 84484; 85025; 93005; 93010; 99284; Q9967

== ENCOUNTER 2017-09-23 20:17 | Emergency (ER) | payer SELFPAY ==
[2017-09-23] MEDS ORDERED: TYLENOL PO ONE (20:41)
[2017-09-23] MEDS ORDERED: ZOFRAN ODT PO ONE (20:42)
[2017-09-23 21:16] LABS: Basophils # (Auto) 0.1 K/mm3 (0.0-0.1); Basophils % (Auto) 0.6 % (0.0-1.8); Eosinophils # (Auto) 0.1 K/mm3 (0.0-0.4); Eosinophils % (Auto) 0.5 % (0.0-4.3); Hematocrit 37.6 % (30.3-42.9); Hemoglobin 12.5 gm/dl (10.1-14.3); Lymphocytes # (Auto) 0.6 K/mm3 (1.2-5.4); Mean Corpuscular HGB Conc 33 % (30-34); Mean Corpuscular Hemoglobin 28 pg (28-32); Mean Corpuscular Volume 83 fl (79-97); Monocytes # (Auto) 0.5 K/mm3 (0.0-0.8); Monocytes % (Auto) 4.5 % (0.0-7.3); Platelet Count 378 K/mm3 (140-440); Red Blood Count 4.51 M/mm3 (3.65-5.03); Red Cell Distribution Width 14.9 % (13.2-15.2)
[2017-09-23 21:21] LABS: Alanine Aminotransferase 10 units/L (7-56); Albumin 3.9 g/dL (3.9-5); BUN/Creatinine Ratio 14; Blood Urea Nitrogen 10 mg/dL (7-17); Calcium 8.9 mg/dL (8.4-10.2); Hemolysis Index 41
[2017-09-23 22:19] LABS: Bilirubin,Urine NEG (Negative); Blood,Urine NEG (Negative); Color,Urine Yellow (Yellow); Protein,Urine <15 mg/dL mg/dL (Negative)
--- NOTE | 2017-09-24 02:30 | Emergency Department Report ---
Vomiting/Diarrhea - HPI Chief Complaint: Nausea/Vomiting/Diarrhea Stated Complaint: NAUSEA,DIZZY,VOMITING Time Seen by Provider: 09/24/17 01:55 Duration: 1 Day Severity: moderate Nausea/Vomiting Severity: Moderate Diarrhea Severity: None Pain Location: Other (none) ED Review of Systems ROS: Stated complaint: NAUSEA,DIZZY,VOMITING Other details as noted in HPI Comment: All other systems reviewed and negative ED Past Medical Hx - Past Medical History Previous Medical History?: No Hx Hypertension: No Hx CVA: No Hx Heart Attack/AMI: No Hx Congestive Heart Failure: No Hx Diabetes: No Hx Deep Vein Thrombosis: No Hx Pulmonary Embolism: No Hx GERD: No Hx Liver Disease: No Hx Renal Disease: No Hx Sickle Cell Disease: No Hx Arthritis: No Hx Headaches / Migraines: No Hx Seizures: No Hx Kidney Stones: No Hx Psychiatric Treatment: No Hx Asthma: No Hx COPD: No Hx Tuberculosis: No Hx Dementia: No Hx HIV: No - Surgical History Past Surgical History?: Yes Hx Coronary Stent: No Hx Open Heart Surgery: No Hx Pacemaker: No Hx Internal Defibrillator: No Hx Cholecystectomy: No Hx Appendectomy: No Hx Breast Surgery: No Additional Surgical History: x2, neck surgery - Social History Smoking Status: Never Smoker Substance Use Type: None - Medications Home Medications: Home Medications Medication Instructions Recorded Confirmed Last Taken Type Vit-Fe Fumar-FA [ 1 tab PO QDAY #30 tablet 02/21/16 09/24/16 21:00 Rx Vitamin] Ferrous Sulfate [Feosol 325 MG tab] 325 mg PO BID #60 tablet 09/24/16 Unknown Rx HYDROcodone/APAP 5-325 [[place] 1 each PO Q6HR PRN #30 tablet 09/24/16 Unknown Rx 5/325] Ibuprofen [Motrin] 800 mg PO Q8HR PRN #30 tablet 09/24/16 Unknown Rx Vit Calc,Iron,Folic 1 each PO DAILY #30 tablet 09/24/16 Unknown Rx [ Vitamins] Ibuprofen [Motrin] 600 mg PO Q8H PRN #30 tablet 01/18/17 Unknown Rx Amoxicillin 500 mg PO BID #20 capsule 09/24/17 Unknown Rx Ondansetron [Zofran Odt] 4 mg PO Q8H PRN #30 tab.rapdis 09/24/17 Unknown Rx Vomiting Diarrhea Exam - Exam General: Vital signs noted. No distress. Alert and acting appropriately. HEENT: Yes Moist Mucous Membranes, No Pharyngeal Erythema, No Pharyngeal Exudates, No Rhinorrhea, No Conjuctival Injection, No Frontal Tenderness, No Maxillary Tenderness Neck: No Adenopathy, No Rigidity Lungs: Yes Clear Lung Sounds, Yes Good Air Exchange, No Wheezes, No Stridor Heart exam: Regular: Yes, Murmur: No, Tachycardia: No Abdomen: Tenderness: No, Peritoneal Signs: No, Distention: No Skin exam: Rash: No, Edema: No Neurologic: Alert and oriented, no deficits. Musculoskeletal: Unremarkable. ED Course Vital Signs 09/23/17 09/24/17 20:31 00:22 Temperature 101.9 F H Pulse Rate 112 H Respiratory 18 18 Rate Blood Pressure 119/78 O2 Sat by Pulse 98 Oximetry - Reevaluation(s) Reevaluation #1: 09/24/17 02:30 able to tolerate liquid prior to discharge and avised to drink lots of fluid ED Medical Decision Making - Lab Data Result diagrams: 09/23/17 21:00 09/23/17 21:00 Critical care attestation.: If time is entered above; I have spent that time in minutes in the direct care of this critically ill patient, excluding procedure time. ED Disposition Clinical Impression: Vomiting, Viral syndrome Disposition: -01 TO HOME OR SELFCARE Is pt being admited?: No Does the pt Need Aspirin: No Condition: Stable Instructions: Rotavirus Infection (ED) Prescriptions: Amoxicillin 500 mg PO BID #20 capsule Ondansetron [Zofran Odt] 4 mg PO Q8H PRN #30 tab.rapdis PRN Reason: Nausea And Vomiting Referrals: NIKKI TSANG MD [Primary Care Provider] - 3-5 Days Time of Disposition: 02:28 Print Language: LITHUANIAN
[2017-09-24] MEDS ORDERED: TRIMOX PO ONE (03:19)
[2017-09-24 04:36] VITALS: BP 118/74
== END 2017-09-24 04:36 | disposition home or self-care (01) ==
LOC: ED 20:17
DX: B34.9 Viral infection, unspecified (principal); R11.2 Nausea with vomiting, unspecified; R19.7 Diarrhea, unspecified
CPT/HCPCS: 36415; 80053; 81001; 84703; 85025; 87430; 93005; 93010; 99283; Q0162

== ENCOUNTER 2019-03-19 18:04 | Emergency (ER) | payer MEDICAID, OTHER ==
[2019-03-19 19:16] VITALS: BP 124/74
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
== END 2019-03-19 21:01 | disposition home or self-care (01) ==
LOC: ED 18:04
DX: S39.012A Strain of muscle, fascia and tendon of lower back, initial encounter (principal); Z79.899 Other long term (current) drug therapy; V49.49XA Driver injured in collision with other motor vehicles in traffic accident, initial encounter; Y93.89 Activity, other specified; Y92.410 Unspecified street and highway as the place of occurrence of the external cause; Y99.8 Other external cause status